=== PATIENT | male | born 1960 | race Caucasian/White ===

== ENCOUNTER 2021-05-11 06:01 | Emergency (ER) | payer OTHER ==
[~2021-05-11] VITALS: Ht 172.7 cm; Wt 83.9 kg
[2021-05-11] MEDS ORDERED: IOHEXOL 300 MG/ML 100ML VIAL. IV ONE (06:15)
--- NOTE | 2021-05-11 06:19 | RAD ---
CT head without contrast: Reason for examination: Left sided weakness. Code stroke. Helical images were obtained through the brain with no contrast administered. Exposure: One or more of the following individualized dose reduction techniques were utilized for thi s examination: 1. Automated exposure control 2. Adjustment of the mA and/or kV according to patient size 3. Use of iterative reconstruction technique. Ventricular systems are symmetric and not dilated. No midline shift is seen. There is no evidence of intracranial hemorrhage. There is a focal area of decreased density consistent with some encephalomal acia in the right frontal lobe. No acute infarcts, masses or edema are evident. No abnormalities of s een at the orbits. The paranasal sinuses and mastoid air cells are clear. No acute skull abnormality is seen. IMPRESSION: No acute intracranial abnormality evident. Decreased density consistent with some focal encephalomalacia in the right frontal lobe. FOR INTERNAL CODING PURPOSES Critical result: Findings discussed with Dr Leonard at 05/11/2021 6:13 AM. RESULT CODE: (C) Electronically signed by: Rosemary Celestin MD (05/11/2021 6:16 AM) [facility]
[2021-05-11 06:28] LABS: BASO # 0.1 x10^3/uL (0.0-0.2); BASO % 1 % (0-3); EOS # 0.4 x10^3/uL (0.0-0.7); EOS % 4 % (0-3); HEMATOCRIT 41.2 % (39.0-53.0); HEMOGLOBIN 14.4 g/dL (13.0-17.5); LYMPH # 2.5 x10^3/uL (1.0-4.8); LYMPH % 25 % (24-48); MEAN CORPUSCULAR HEMOGLOBIN 32 pg (25-35); MEAN CORPUSCULAR HGB CONC 35 g/dL (31-37); MEAN CORPUSCULAR VOLUME 92 fL (79-100); MONO # 0.9 x10^3/uL (0.0-1.1); MONO % 9 % (0-9); NEUT # 6.1 x10^3/uL (1.8-7.7); NEUT % 61 % (31-73); PLATELET COUNT 230 x10^3/uL (140-400); RED BLOOD COUNT 4.47 x10^6/uL (4.30-5.70); RED CELL DISTRIBUTION WIDTH 14.3 % (11.5-14.5)
[2021-05-11] MEDS ORDERED: CONTRAST GIVEN. MC PRN (06:30)
[2021-05-11 06:41] LABS: PROTHROMBIN TIME PATIENT 13.9 SEC (11.7-14.0)
[2021-05-11 06:42] LABS: CALCIUM 9.1 mg/dL (8.5-10.1); CREATININE 1.2 mg/dL (0.7-1.3); GFR 61.6; POTASSIUM 3.8 mmol/L (3.5-5.1)
[2021-05-11] MEDS ORDERED: IV NORMAL SALINE 1000ML BAG 1,000 ML IV ONE (06:45)
[2021-05-11 06:48] LABS: ALBUMIN 3.5 g/dL (3.4-5.0); ALBUMIN/GLOBULIN RATIO 1.1 (1.0-1.7); PHOSPHORUS 3.4 mg/dL (2.6-4.7); TOTAL BILIRUBIN 0.2 mg/dL (0.2-1.0); TOTAL PROTEIN 6.7 g/dL (6.4-8.2)
--- NOTE | 2021-05-11 06:58 | RAD ---
CT angiogram of the head and neck with contrast: Reason for examination: Left-sided weakness. Helical images were obtained through the head and neck with intravenous administration of 75 cc Omnip aque 300 using angiographic protocol. 3-D MIPS reconstruction was performed in sagittal and coronal p lanes and volume rendered images were obtained. Examination was compromised by motion artifact. Exposure: One or more of the following individualized dose reduction techniques were utilized for thi s examination: 1. Automated exposure control 2. Adjustment of the mA and/or kV according to patient size 3. Use of iterative reconstruction technique. The right intracranial carotid artery appears to be some is severely stenosed or occluded with contra st appearance or be seen in the distal intracranial carotid artery from 12 to the right posterior com municating artery. There is bifurcation of the distal right intracranial carotid artery into the ante rior and middle is cerebral arteries but there is occlusion or severe stenosis of the right middle ce rebral artery proximally at the M1 segment. The left anterior and middle cerebral arteries appears to be patent. The intracranial vertebral arteries are patent to their confluence into the basilar arter y and there is flow in the superior cerebellar and posterior cerebral arteries bilaterally. No aneury sms or arteriovenous malformations are identified. Dural sinuses and cerebral veins are patent. The thoracic aortic arch shows no aneurysmal dilatation or dissection. There is normal origin of the right brachiocephalic artery, left common carotid artery and left subclavian arteries from the arch. The vertebral arteries bilaterally arise from their respective subclavian arteries. The vertebral art eries are patent to their basilar confluence. The right common carotid artery is patent to the caroti d bulb. At the bifurcation however there is flow in the right external carotid artery but no flow dis tally in the right internal carotid artery. The left common carotid artery appears to show stenosis a t the carotid bulb but remains patent to the intracranial carotid artery. IMPRESSION: Examination compromised by patient motion artifact. 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 Flow present in the proximal M1 segment of the right middle cerebral artery but not seen distally. Moderate stenosis at the origin of the left internal carotid artery. FOR INTERNAL CODING PURPOSES Critical result: Findings discussed with Dr Leonard at 05/11/2021 6:51 AM. RESULT CODE: (C) Electronically signed by: Rosemary Celestin MD (05/11/2021 6:55 AM) [facility]
[2021-05-11 07:15] VITALS: BP 162/86
--- NOTE | 2021-05-11 07:21 | ED.ADGEN ---
Past Medical History Additional Past Medical Histor: HIGH CHOLESTEROL,ADHD Past Surgical History: Other Additional Past Surgical Histo: ABD SCAR, RIGHT SHOULDER. General Adult EDM: Chief Complaint: NEURO SYMPTOMS/DEFICITS HPI: HPI: Patient is a 61 year old male presenting with left-sided weakness and slurred speech since he woke up. Last known normal was 2300 yesterday. Patient was needing help to get to the restroom and fell and needs slid down the wall causing minor contusion and abrasion to the left side of his head. Patient ale es any blood thinner use. No known history of stroke. Review of Systems: Review of Systems: All other systems within normal limits except for as noted in the HPI Current Medications: Current Medications Medications (Trade) Dose Ordered Sig/Edmundo Start Time Stop Time Status Last Admin Dose Admin Info (CONTRAST GIVEN -- Rx MONITORING) 1 each PRN DAILY PRN 05/11/21 06:30 05/13/21 06:29 Iohexol (Omnipaque 300 Mg/ml) 75 ml 1X ONCE 05/11/21 06:15 05/11/21 06:26 DC Sodium Chloride 1,000 ml @ 1,000 mls/hr 1X ONCE 05/11/21 06:45 05/11/21 07:44 05/11/21 06:41 1,000 MLS/HR Allergies: Allergies: Allergies Coded Allergies Type Severity Reaction Last Updated Verified No Known Drug Allergies 05/11/21 No Physical Exam: PE: Constitutional: Well developed, well nourished, no acute distress, non-toxic appearance. [] HENT: Normocephalic, atraumatic, bilateral external ears normal, nose normal. [] Eyes: PERRLA, conjunctiva normal, no discharge. [] Neck: No rigidity, supple, no stridor. [] Cardiovascular: Regular rate and rhythm, brisk cap refill [] Lungs & Thorax: Non labored symmetric respirations, no tachypnea or respiratory distress [] Abdomen: Soft, nondistended. Skin: Warm, dry, no erythema, no rash. [] Back: Unremarkable Extremities: No deformities, range of motion grossly intact, no lower extremity edema [] Neurologic: Alert and oriented X 3, left-sided facial droop on upper and lower face. Left upper and lower extremity weakness with involuntary spasm, slurred speech. NIH 22 Psychologic: Affect normal, judgement normal, mood normal. [] Current Patient Data: Labs: Laboratory Tests Test 05/11/21 05:45 05/11/21 06:20 05/11/21 06:46 SARS-CoV-2 Antigen (Rapid) Negative (NEGATIVE) White Blood Count 10.0 x10^3/uL (4.0-11.0) Red Blood Count 4.47 x10^6/uL (4.30-5.70) Hemoglobin 14.4 g/dL (13.0-17.5) Hematocrit 41.2 % (39.0-53.0) Mean Corpuscular Volume 92 fL (79-100) Mean Corpuscular Hemoglobin 32 pg (25-35) Mean Corpuscular Hemoglobin Concent 35 g/dL (31-37) Red Cell Distribution Width 14.3 % (11.5-14.5) Platelet Count 230 x10^3/uL (140-400) Neutrophils (%) (Auto) 61 % (31-73) Lymphocytes (%) (Auto) 25 % (24-48) Monocytes (%) (Auto) 9 % (0-9) Eosinophils (%) (Auto) 4 % (0-3) H Basophils (%) (Auto) 1 % (0-3) Neutrophils # (Auto) 6.1 x10^3/uL (1.8-7.7) Lymphocytes # (Auto) 2.5 x10^3/uL (1.0-4.8) Monocytes # (Auto) 0.9 x10^3/uL (0.0-1.1) Eosinophils # (Auto) 0.4 x10^3/uL (0.0-0.7) Basophils # (Auto) 0.1 x10^3/uL (0.0-0.2) Prothrombin Time 13.9 SEC (11.7-14.0) Prothrombin Time INR 1.1 (0.8-1.1) Activated Partial Thromboplast Time 34 SEC (24-38) Sodium Level 137 mmol/L (136-145) Potassium Level 3.8 mmol/L (3.5-5.1) Chloride Level 102 mmol/L (98-107) Carbon Dioxide Level 28 mmol/L (21-32) Anion Gap 7 (6-14) Blood Urea Nitrogen 16 mg/dL (8-26) Creatinine 1.2 mg/dL (0.7-1.3) Estimated GFR (Cockcroft-Gault) 61.6 BUN/Creatinine Ratio 13 (6-20) Glucose Level 124 mg/dL (70-99) H Calcium Level 9.1 mg/dL (8.5-10.1) Phosphorus Level 3.4 mg/dL (2.6-4.7) Magnesium Level 2.0 mg/dL (1.8-2.4) Total Bilirubin 0.2 mg/dL (0.2-1.0) Aspartate Amino Transferase (AST) 11 U/L (15-37) L Alanine Aminotransferase (ALT) 63 U/L (16-63) Alkaline Phosphatase 107 U/L (46-116) Troponin I Quantitative < 0.017 ng/mL (0.000-0.055) SL-Sya-K-Type Natriuretic Peptide 24 pg/mL (0-124) Total Protein 6.7 g/dL (6.4-8.2) Albumin 3.5 g/dL (3.4-5.0) Albumin/Globulin Ratio 1.1 (1.0-1.7) Ethyl Alcohol Level < 10 mg/dL (0-10) Glucose (Fingerstick) 144 mg/dL (70-99) H Laboratory Tests 05/11/21 06:20 Laboratory Tests 05/11/21 06:20 Vital Signs: Vital Signs Date Time Temp Pulse Resp B/P (MAP) Pulse Ox O2 Delivery O2 Flow Rate FiO2 05/11/21 06:41 60 16 141/78 (99) 92 Room Air 05/11/21 06:01 96.2 96.2 EKG: EKG: Sinus rhythm, heart rate 68 bpm, normal axis, no ST elevation depression, no ectopy. [] Heart Score: C/O Chest Pain: N/A Risk Factors: Risk Factors: DM, Current or recent (<one month) smoker, HTN, HLP, family history of CAD, obesity. Risk Scores: Score 0 - 3: 2.5% MACE over next 6 weeks - Discharge Home Score 4 - 6: 20.3% MACE over next 6 weeks - Admit for Clinical Observation Score 7 - 10: 72.7% MACE over next 6 weeks - Early Invasive Strategies Radiology/Procedures: Radiology/Procedures: [facility] [address] [place] [address] IMAGING REPORT Addendum PATIENT: JOSUE HOUSER ACCOUNT: [id number] : 1960 LOCATION: ER AGE: 61 SEX: M EXAM STATUS: REG ER ORD. PHYSICIAN: GUMARO RIOS MD REASON: left weakness, code stroke. ED [phone] PROCEDURE: CT CODE STROKE HEAD WO ADDENDUM ADDENDUM #1 Addendum: Addendum to the head CT report dated 05/11/2021. There is hyperdensity along the course of the right middle cerebral artery which would be consistent with slow flow or clot. Dr. Rios is aware of this finding. Electronically signed by: Sheba Lopez MD (05/11/2021 7:01 AM) [facility] head without contrast: Reason for examination: Left sided weakness. Code stroke. Helical images were obtained through the brain with no contrast administered. Exposure: One or more of the following individualized dose reduction techniques were utilized for this examination: 1. Automated exposure control 2. Adjustment of the mA and/or kV according to patient size 3. Use of iterative reconstruction technique. Ventricular systems are symmetric and not dilated. No midline shift is seen. There is no evidence of intracranial hemorrhage. There is a focal area of decreased density consistent with some encephalomalacia in the right frontal lobe. No acute infarcts, masses or edema are evident. No abnormalities of seen at the orbits. The paranasal sinuses and mastoid air cells are clear. No acute skull abnormality is seen. IMPRESSION: No acute intracranial abnormality evident. Decreased density consistent with some focal encephalomalacia in the right frontal lobe. FOR INTERNAL CODING PURPOSES Critical result: Findings discussed with Dr Rios at 05/11/2021 6:13 AM. RESULT CODE: (C) Electronically signed by: Sheba Lopez MD (05/11/2021 6:16 AM) [facility] DICTATED AND SIGNED BY: SHEBA LOPEZ MD DATE: 05/11/21 0659 CC: GUMARO RIOS MD; UNKNOWN PCP NAME ~ CT head without contrast: Reason for examination: Left sided weakness. Code stroke. Helical images were obtained through the brain with no contrast administered. Exposure: One or more of the following individualized dose reduction techniques were utilized for this examination: 1. Automated exposure control 2. Adjustment of the mA and/or kV according to patient size 3. Use of iterative reconstruction technique. Ventricular systems are symmetric and not dilated. No midline shift is seen. There is no evidence of intracranial hemorrhage. There is a focal area of decreased density consistent with some encephalomalacia in the right frontal lobe. No acute infarcts, masses or edema are evident. No abnormalities of seen at the orbits. The paranasal sinuses and mastoid air cells are clear. No acute skull abnormality is seen. IMPRESSION: No acute intracranial abnormality evident. Decreased density consistent with some focal encephalomalacia in the right frontal lobe. FOR INTERNAL CODING PURPOSES Critical result: Findings discussed with Dr Rios at 05/11/2021 6:13 AM. RESULT CODE: (C) Electronically signed by: Sheba Lopez MD (05/11/2021 6:16 AM) [facility] DICTATED and SIGNED BY: SHEBA LOPEZ MD DATE: 05/11/21 [id number] [][facility] [address] [place] [address] IMAGING REPORT Signed PATIENT: JOSUE HOUSER ACCOUNT: [id number] : 1960 LOCATION: ER AGE: 61 SEX: M EXAM STATUS: REG ER ORD. PHYSICIAN: GUMARO RIOS MD REASON: left weakness, OMNI 300 75 ML IV PT MOVED TALKING DURING EXAM IV LOSE LEAK PROCEDURE: CT ANGIOGRAPHY HEAD AND NECK CT angiogram of the head and neck with contrast: Reason for examination: Left-sided weakness. Helical images were obtained through the head and neck with intravenous administ ration of 75 cc Omnipaque 300 using angiographic protocol. 3-D MIPS reconstruction was performed in sagittal and coronal planes and volume rendered images were obtained. Examination was compromised by motion artifact. Exposure: One or more of the following individualized dose reduction techniques were utilized for this examination: 1. Automated exposure control 2. Adjustment of the mA and/or kV according to patient size 3. Use of iterative reconstruction technique. The right intracranial carotid artery appears to be some is severely stenosed or occluded with contrast appearance or be seen in the distal intracranial carotid artery from 12 to the right posterior communicating artery. There is bifurcation of the distal right intracranial carotid artery into the anterior and middle is cerebral arteries but there is occlusion or severe stenosis of the right middle cerebral artery proximally at the M1 segment. The left anterior and middle cerebral arteries appears to be patent. The intracranial vertebral arteries are patent to their confluence into the basilar artery and there is flow in the superior cerebellar and posterior cerebral arteries bilaterally. No aneurysms or arteriovenous malformations are identified. Dural sinuses and cerebral veins are patent. The thoracic aortic arch shows no aneurysmal dilatation or dissection. There is normal origin of the right brachiocephalic artery, left common carotid artery and left subclavian arteries from the arch. The vertebral arteries bilaterally arise from their respective subclavian arteries. The vertebral arteries are patent to their basilar confluence. The right common carotid artery is patent to the carotid bulb. At the bifurcation however there is flow in the right external carotid artery but no flow distally in the right internal carotid artery. The left common carotid artery appears to show stenosis at the carotid b ulb but remains patent to the intracranial carotid artery. IMPRESSION: Examination compromised by patient motion artifact. Apparent occlusion of the right internal carotid artery from the carotid bulb with flow seen in the distal intracranial carotid artery from the right posterior communicating artery. Flow present in the proximal M1 segment of the right middle cerebral artery but not seen distally. Moderate stenosis at the origin of the left internal carotid artery. FOR INTERNAL CODING PURPOSES Critical result: Findings discussed with Dr Rios at 05/11/2021 6:51 AM. RESULT CODE: (C) Electronically signed by: Sheba Lopez MD (05/11/2021 6:55 AM) [facility] DI[facility]ATED and SIGNED BY: SHEBA LOPEZ MD DATE: 05/11/21 [id number] Course & Med Decision Making: Course & Med Decision Making Despite just hyperattenuation in right MCA with radiologist. Decreased possible stroke in accordance with patient's symptoms. Contacted [facility] neurology, will accept transfer per Dr. Carroll for possible intervention Jerald Disclaimer: Jerald Disclaimer: This electronic medical record was generated, in whole or in part, using a voice recognition dictation system. Departure Departure Impression: Primary Impression: Acute right MCA stroke Disposition: 02 SHORT TERM HOSPITAL Condition: CRITICAL Referrals: UNKNOWN PCP NAME (PCP) GUMARO RIOS MD May 11, 2021 07:21
[2021-05-11] MEDS ORDERED: CHOL10004 PO (07:50)
[2021-05-11] MEDS ORDERED: ATOR20TA58 PO (07:50)
[2021-05-11] MEDS ORDERED: AMLO-186 PO (07:50)
[2021-05-11] MEDS ORDERED: ARIP15TA3 PO (07:50)
[2021-05-11] MEDS ORDERED: PRAZ2CAP2 PO (07:50)
[2021-05-11] MEDS ORDERED: GABA800T5 PO (07:50)
[2021-05-11] MEDS ORDERED: [UNRECOGNIZED DRUG - CODE] PO (07:50)
[2021-05-11] MEDS ORDERED: LEVO-101 PO (07:50)
[2021-05-11] MEDS ORDERED: VENL150C PO (07:50)
[2021-05-11] MEDS ORDERED: LACT1CAP37 PO (07:50)
[2021-05-11] MEDS ORDERED: VITA1TAB3 PO (07:50)
[2021-05-11] MEDS ORDERED: LISI10TA16 PO (07:50)
[2021-05-11] MEDS ORDERED: TRAZ-123 PO (07:50)
--- NOTE | 2021-05-11 14:57 | EKG ---
[facility] [address] [place] [address] Test Date: 2021-05-11 Test Time: 06:19:01 Pat Name: JOSUE HOUSER Department: Room: Gender: M Analytical Scientist: : 1960 Requested By: GUMARO RIOS Order Number: [id number] Reading MD: Measurements Intervals [place] Rate: 68 P: 68 NH: 166 QRS: 42 QRSD: 90 T: 70 QT: 406 QTc: 437 Interpretive Statements SINUS RHYTHM T ABNORMALITY IN HIGH LATERAL LEADS ABNORMAL ECG RI6.02 No previous ECG available for comparison
== END 2021-05-11 07:18 | disposition short-term general hospital (02) ==
LOC: ER 06:01
DX: I63.511 Cerebral infarction due to unspecified occlusion or stenosis of right middle cerebral artery (principal); Z20.822 Contact with and (suspected) exposure to COVID-19; R51.9 Headache, unspecified; M54.2 Cervicalgia; E78.00 Pure hypercholesterolemia, unspecified; F90.9 Attention-deficit hyperactivity disorder, unspecified type
CPT/HCPCS: 36415; 70450; 70496; 70498; 80053; 82962; 83735; 83880; 84100; 84484; 85025; 85610; 85730; 87426; 93005; 96360; 99285; G0480; J7030; Q9967; U0003; U0005